=== PATIENT | female | born 1990 | race Caucasian/White ===

== ENCOUNTER 2017-04-06 23:18 | Observation (INO) | payer OTHER ==
[~2017-04-06] VITALS: Ht 160 cm; Wt 66.2 kg
[2017-04-06] MEDS ORDERED: PREN1TAB89 PO (23:53)
[2017-04-07] MEDS ORDERED: RINGERS SOLUTION,LACTATED 1,000 ML IV ONE (00:59)
[2017-04-07] MEDS ORDERED: RINGERS SOLUTION,LACTATED 1,000 ML IV SCH (01:00)
== END 2017-04-07 03:40 | disposition home or self-care (01) ==
LOC: 4S 23:18
PROVIDERS: ADMIT Obstetrics & Gynecology; ATTEND Obstetrics & Gynecology
DX: O26.893 Other specified pregnancy related conditions, third trimester (principal); R10.9 Unspecified abdominal pain; Z3A.37 37 weeks gestation of pregnancy
CPT/HCPCS: 59025; G0378 ×2; J7120; 96360; 96361

== ENCOUNTER 2017-04-19 11:35 | Inpatient (IN) | payer OTHER ==
[~2017-04-19] VITALS: Ht 161 cm; Wt 67.1 kg
[~2017-04-19 11:35] MED LIST: PREN1TAB89 PO
[2017-04-19] MEDS ORDERED: KETOROLAC TROMETHAMINE 60 MG/2 ML VIAL IM ONE (12:00)
[2017-04-19] MEDS ORDERED: DEXAMETHASONE SOD PHOS 4 MG/ML VIAL IVP ONE (12:00)
[2017-04-19] MEDS ORDERED: EPHEDrine SULFATE 50 MG/ML VIAL IM ONE (12:00)
[2017-04-19] MEDS ORDERED: RINGERS SOLUTION,LACTATED 1,000 ML IV ONE ×2 (12:12→13:21)
[2017-04-19 12:14] VITALS: BP 115/62
[2017-04-19] MEDS ORDERED: CITRIC ACID/SODIUM CITRATE 30 ML SOLUTION UDCUP PO ONE (12:15)
[2017-04-19] MEDS ORDERED: METOCLOPRAMIDE HCL 5 MG/ML 2 ML VIAL IVP ONE (12:15)
[2017-04-19 12:44] LABS: BASOPHILS % (AUTO) 0.6 % (0.0-2.0); EOSINOPHILS % (AUTO) 1.4 % (1.0-6.0); HEMOGLOBIN 13.4 g/dL (12.0-16.0); LYMPHOCYTES # (AUTO) 2.2 K/uL (1.0-4.8); LYMPHOCYTES % (AUTO) 24.7 % (22.0-44.0); MEAN CORPUSCULAR HEMOGLOBIN 33.1 pg (26.0-34.0); MEAN CORPUSCULAR HGB CONC 34.3 G/dL (31.0-37.0); MEAN CORPUSCULAR VOLUME 96 fL (80-100); MONOCYTES # (AUTO) 0.6 K/uL (0.1-1.0); NEUTROPHILS % (AUTO) 66.3 % (40.0-70.0); RED BLOOD CELL COUNT(AUTO) 4.05 MIL/uL (4.00-5.20); RED CELL DISTRIBUTION WIDTH 13.9 % (11.5-14.5); WHITE BLOOD COUNT (AUTO) 9.1 K/uL (4.5-11.0)
[2017-04-19] MEDS ORDERED: MORPHINE SULFATE/PF 1 MG/ML 10 ML AMP ONE (13:20)
[2017-04-19] MEDS ORDERED: MIDAZOLAM HCL 2 MG/2 ML VIAL ONE (13:20)
[2017-04-19] MEDS ORDERED: MORPHINE SULFATE 2 MG/ML SYRINGE IVP PRN (15:45)
[2017-04-19] MEDS ORDERED: ONDANSETRON HCL 4 MG/2 ML VIAL IVP PRN ×2 (15:45)
[2017-04-19] MEDS ORDERED: MORPHINE SULFATE 4 MG/ML SYRINGE IVP PRN (15:45)
[2017-04-19] MEDS ORDERED: DiphenhydrAMINE HCL 50 MG/ML VIAL IVP PRN ×2 (15:45)
[2017-04-19] MEDS ORDERED: FentaNYL CITRATE-PF 100 MCG/2 ML VIAL IVP PRN ×2 (15:45)
[2017-04-19] MEDS ORDERED: LANOLIN 7 GM OINTMENT TP PRN (16:15)
[2017-04-19] MEDS ORDERED: ACETAMINOPHEN/CODEINE 300-30 MG TABLET PO PRN (16:15)
[2017-04-19] MEDS ORDERED: DiphenhydrAMINE HCL 50 MG/ML VIAL ONE (16:31)
[2017-04-19] MEDS ORDERED: OXYGEN THERAPY IH SCH ×2 (20:00)
[2017-04-19] MEDS: NALBUPHINE HCL 10 MG/ML VIAL IVP SCH (20:28)
[2017-04-19] MEDS: MAGNESIUM HYDROXIDE SUSPENSION 30 ML UDCUP PO SCH (21:00)
[2017-04-19] MEDS: KETOROLAC TROMETHAMINE 30 MG/ML VIAL IVP SCH (22:11)
[2017-04-19] MEDS: DEXTROSE 5%-0.45% SODIUM CHL 1,000 ML IV SCH (22:11)
[2017-04-20] MEDS: NALBUPHINE HCL 10 MG/ML VIAL IVP SCH ×2 (02:11→08:28)
[2017-04-20] MEDS: DEXTROSE 5%-0.45% SODIUM CHL 1,000 ML IV SCH ×3 (03:47→11:21)
[2017-04-20] MEDS: KETOROLAC TROMETHAMINE 30 MG/ML VIAL IVP SCH ×2 (03:48→09:58)
[2017-04-20] MEDS: MAGNESIUM HYDROXIDE SUSPENSION 30 ML UDCUP PO SCH ×2 (08:28→19:57)
[2017-04-20] MEDS ORDERED: IBUPROFEN 800 MG TABLET PO SCH (09:00)
[2017-04-20] MEDS: IBUPROFEN 800 MG TABLET PO SCH ×2 (14:38→22:35)
[2017-04-20] MEDS: ACETAMINOPHEN/CODEINE 300-30 MG TABLET PO PRN ×2 (19:57→19:58)
[2017-04-21] MEDS: IBUPROFEN 800 MG TABLET PO SCH ×3 (05:52→13:46)
[2017-04-21] MEDS: MAGNESIUM HYDROXIDE SUSPENSION 30 ML UDCUP PO SCH ×2 (08:34→09:00)
[2017-04-21] MEDS ORDERED: IBUP-1547 PO (12:30)
[2017-04-21] MEDS ORDERED: DSS100 PO (12:30)
[2017-04-21] MEDS ORDERED: PERCT PO (12:34)
== END 2017-04-21 17:05 | disposition home or self-care (01) | DRG 766 ==
LOC: 4S 11:35 → OBSVTOIN 11:35
PROVIDERS: ADMIT Obstetrics & Gynecology; ATTEND Obstetrics & Gynecology
PROC: 10D00Z1 Extraction of Products of Conception, Low, Open Approach (ICD-10-PCS; principal; 2017-04-19)
DX: O34.211 Maternal care for low transverse scar from previous cesarean delivery (principal); O69.81X0 Labor and delivery complicated by cord around neck, without compression, not applicable or unspecified; Z3A.39 39 weeks gestation of pregnancy; Z37.0 Single live birth
CPT/HCPCS: 86850; 86900; 86901; 87081; J0690; J1100; J1200; J1885; J2250; J2300; J2765; J3490; J7120